=== PATIENT | female | born 1935 | race Caucasian/White ===

== ENCOUNTER 2021-01-27 18:50 | Inpatient (IN) | payer MEDICARE ==
[~2021-01-27] VITALS: Ht 160 cm; Wt 71.7 kg
--- NOTE | ~2021-01-27 | EMS ---
[facility] [address] [place] [address] EMS Patient Care Report Name: TAWANNA WORRELL Room #: REG M.R.#: [id number] Admission: 01/27/21 Attend Phys: Discharge: Date of : 34 Report #: [id number] THIS REPORT FOR: //name// Report Transmitted: 01/27/2021 20:30 EMS Care Summary [place], [place]/[facility] Incident [id number] @ 01/27/2021 18:28 Incident Location [address] [place] [address] Patient TAWANNA WORRELL Female, 85 Years 1935 Patient Address [address] [address] Patient History Cardiac Condition - Other,Cardiac - Stent, Chief Complaint ALTERED MENTAL STATUS Disposition Transported [place] Dispatch Reason Unconscious/Fainting Transported To [facility] Narrative UPON ARRIVAL PT SLUMPED BACK IN CHAIR AT KITCHEN TABLE BARELY CONSCIOUS AND NOT ALERT. PT HAD A CHANGE IN MENTAL STATUS AND HAS BEEN IN AND OUT OF CONSCIOUSNESS. PUMPER CREW HAS A NRB ON PT AND HAS BEEN UNABLE TO GET A B/P. UNABLE TO PALPATE RADIAL PULSE, DUE TO CLAMMY PALE SKIN WE ASSUME B/P IS LOW. PT ALSO BRADYCARDIC. PT LIFTED DOWN TO COOK RELIEF ON FLOOR AND CARRIED TO COT/ LOADED. IV STARTED, WHILE PADS ARE BEING PLACED PT GIVEN ATROPINE WITH NO EFFECT. REPORT CALLED TO ER AND PACING OF PT BEGINS. PT HAS SUGNIFICANT IMPROVEMENT OF SKIN VITALS AND IMPROVEMENT OF B/P AFTER PACING BEGAN. PT [facility] [address] [place] [address] EMS Patient Care Report Name: TAWANNA WORRELL Room #: REG [facility].R.#: [id number] Admission: 01/27/21 Attend Phys: Discharge: Date of : 34 Report #: [id number] TRANSPORTED TO [facility]. Initial Vitals @18:40P: 27,SpO2: 95, @18:46P: 24, @PTAP: 40,SpO2: 98, @18:47P: 73,R: 20,BP: 94/58,GCS: 9,CO: 1,SpO2: 97,Revised Trauma: 11, @18:39P: 34,R: 20,Pain: 0/10,GCS: 9,Glucose: 217,SpO2: 100, Assessments @18:36MENTAL:Unresponsive,SKIN:Diaphoresis,Pale,HEENT:Neck/Airway: No Abnormalities,LUNG SOUNDS:General: No Abnormalities,ABDOMEN:General: No Abnormalities,PELVIS//GI:EXTREMITIES:Left Arm: Weakness,Right Arm: Weakness,Left Arm: Abnormal Pulse,Right Arm: Abnormal Pulse,Right Leg: Weakness,Left Leg: Weakness,PULSE:Radial: Absent,Carotid: 1+ Thready,NEURO:No Abnormalities, Impression Cardiac arrhythmia/dysrhythmia Procedures @18:46Response: Improved@18:36ALS AssessmentResponse: UnchangedSucceeded@PTAOxygen FlowRate: 15 Device: Non Re-breather Mask (NRB) Response: UnchangedSucceeded@18:43Atropine - 0.5 Milligrams (mg) - Intravenous (IV)Response: Unchanged@18:41Normal Saline (.9% NaCl) 300cc (20 ga) Site: Hand-LeftResponse: UnchangedSucceeded@18:413-Lead ECGResponse: UnchangedSucceeded 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,Oxygen FlowRate: 15 Device: Non Re-breather Mask (NRB) Response: UnchangedSucceeded, 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,BP: / M,PULSE: 40,RR: R,SPO2: 98 Ox,ETCO2: ,BG: ,PAIN: ,GCS: , 18:24,Call Received 18:24,Dispatch Notified 18:28,Dispatched 18:28,En Route 18:34,On Scene 18:35,At Patient 18:36,ALS Assessment,Response: UnchangedSucceeded, 18:39,BP: / M,PULSE: 34,RR: 20 R,SPO2: 100 Ox,ETCO2: ,B,PAIN: 0,GCS: 9, 18:40,BP: / M,PULSE: 27,RR: R,SPO2: 95 Ox,ETCO2: ,BG: ,PAIN: ,GCS: , 18:41,Normal Saline (.9% NaCl) 300cc 20 ga Site: Hand-Left,Response: UnchangedSucceeded, 18:41,3-Lead ECG,Response: UnchangedSucceeded, 18:43,Atropine - 0.5 Milligrams (mg) - Intravenous (IV),Response: Unchanged 18:43,Depart Scene [address] [address] EMS Patient Care Report Name: TAWANNA WORRELL Room #: REG KRISTINE M.R.#: [id number] Admission: 01/27/21 Attend Phys: Discharge: Date of : 34 Report #: [id number] 18:46,Response: Improved 18:46,At Destination 18:46,BP: / M,PULSE: 24,RR: R,SPO2: Ox,ETCO2: ,BG: ,PAIN: ,GCS: , 18:47,BP: 94/58 M,PULSE: 73,RR: 20 R,SPO2: 97 Ox,ETCO2: ,BG: ,PAIN: ,GCS: 9, 18:56,Call Closed Disclaimer v1.1 Copyright 2020 [employer] This EMS Care Summary contains data elements from the applicable legal record (which may be displayed differently). It is designed to provide pertinent information for the following purposes: continuity of care, clinical quality, and state data reporting. The complete legal record is available to ED staff and administrators of the receiving hospital in [employer] Patient Tr[employer]. All data is provided "as is."
[2021-01-27 18:51] VITALS: BP 221/81
[2021-01-27 19:18] LABS: ABSOLUTE NEUTROPHILS 4.4 thou/uL (1.4-8.2); BASOPHILS 0.7 % (0.0-2.0); EOSINOPHILS 1.6 % (0.0-3.0); HEMATOCRIT 39.7 % (37.0-47.0); HEMOGLOBIN 12.8 gm/dL (12.0-15.0); LYMPHOCYTES 46.5 % (24.0-44.0); MCH 31.4 pg (26.0-34.0); MCHC 32.3 g/dL (28.0-37.0); MCV 96.9 fL (80.0-100.0); MONOCYTES 14.4 % (1.0-8.0); PLATELET COUNT 169 thou/uL (150-400); POLYS 36.8 % (36.0-66.0); RDW 15.1 % (10.5-14.5)
[2021-01-27 19:41] LABS: ALBUMIN 2.9 g/dL (3.4-5.0); ANION GAP 13 mmol/L (7-16); BUN 31 mg/dL (7-18); CHLORIDE 105 mmol/L (98-107); CO2 19 mmol/L (21-32); CREATININE 1.5 mg/dL (0.6-1.0); DIRECT BILIRUBIN 0.1 mg/dL (<0.1-0.2); GLUCOSE 220 mg/dL (74-106); POTASSIUM 4.8 mmol/L (3.5-5.1); SGOT 114 U/L (15-37); SGPT 133 U/L (14-59); SODIUM 137 mmol/L (136-145); TOTAL BILIRUBIN 0.5 mg/dL (0.2-1.0); TOTAL PROTEIN 6.7 g/dL (6.4-8.2); TROPONIN-I <0.06 ng/mL (<0.06)
[2021-01-27 19:42] LABS: CALCIUM 12.8 mg/dL (8.5-10.1)
[2021-01-27 19:45] LABS: URINE BILIRUBIN NEGATIVE (Negative); URINE BLOOD NEGATIVE (Negative); URINE CLARITY CLEAR; URINE COLOR YELLOW; URINE GLUCOSE-RANDOM* TRACE (Negative); URINE KETONES NEGATIVE (Negative); URINE NITRITE-REFLEX NEGATIVE (Negative); URINE PROTEIN (DIPSTICK) 1+ (Negative); URINE SPECIFIC GRAVITY 1.015 (1.005-1.035); URINE UROBILINOGEN 0.2 E.U./dl (0.2-1.0)
[2021-01-27 19:51] LABS: URINE LEUKOCYTES-REFLEX 2+ (Negative)
[2021-01-27 20:05] LABS: BACTERIA-REFLEX None Seen /HPF (None Seen); SQUAMOUS 0-3 Few /LPF (0-3); URINE RBC None Seen /HPF (NONE SEEN); URINE WBC-REFLEX 0-5 Rare /HPF (0-5)
[2021-01-27 20:06] LABS: CRYSTALS None Seen /LPF (None Seen)
[2021-01-27 22:57] LABS: CHOLESTEROL 139 mg/dL (<200); HDL CHOLESTEROL 69 mg/dL (>40); LDL CHOLESTEROL 44 mg/dL (<100); TRIGLYCERIDE 130 mg/dL (<150); VLDL 26 mg/dL (<40)
[2021-01-27 23:02] LABS: SERUM ASSESSMENT Clear
[2021-01-28] VITALS (7 sets, daily range): BP systolic 121–163; BP diastolic 46–72
[2021-01-28 05:16] LABS: CREATININE 1.2 mg/dL (0.6-1.0); POTASSIUM 4.5 mmol/L (3.5-5.1)
[2021-01-28 05:17] LABS: CALCIUM 8.6 mg/dL (8.5-10.1)
--- NOTE | 2021-01-28 07:22 | EKG ---
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: augusta : 1935 Requested By: Cherri Silva Order Number: [id number] MD: Avtar Magdaleno Measurements Intervals [place] Rate: 68 P: 104 DC: 368 QRS: -79 QRSD: 157 T: 90 QT: 466 QTc: 496 Interpretive Statements Second degree AV block, Mobitz II Right bundle branch block LVH with secondary repolarization abnormality No previous ECG available for comparison Electronically Signed On 01-28-2021 7:21:51 CDT by Avtar Magdaleno [email or web address] <ELECTRONICALLY SIGNED> By: Avtar Magdaleno MD, [facility] 01/28/21720 55 55 Avtar Magdaleno MD, FACC /EPI
--- NOTE | 2021-01-28 09:45 | 2DMMODE ---
[facility] [address] [email or web address] [address] 2 D/M-MODE ECHOCARDIOGRAM Name: TAWANNA WORRELL Room #: 170-9 ADM IN M.R.#: [id number] Admission: 01/27/21 Attend Phys: Velasquez Mathur MD Discharge: Date of : 34 Report #: [id number] THIS REPORT FOR: cc: Hussein Holley MD, Jonathan MD Park, Jin S. MD ~ APPROVED REPORT Study performed: 01/28/2021 08:20:42 EXAM: Comprehensive 2D, Doppler, and color-flow Echocardiogram Patient Location: ER Status: routine BSA: 1.75 HR: 54 bpm BP: 123/66 mmHg Rhythm: NSR Other Information Study Quality: Adequate Indications Heart block. Hx: CABG, AFIB 2D Dimensions RVDd: 36.47 mm IVSd: 10.52 (7-11mm) LVOT Diam: 19.97 (18-24mm) LVDd: 52.62 mm PWd: 10.01 (7-11mm) LVDs: 31.66 (25-40mm) Left Atrium: 38.22 (27-40mm) Aortic Root: 31.95 mm Volumes Left Atrial Volume (Systole) Single Plane 4CH: 103.66 mL Single Plane 2CH: 83.23 mL LA ESV Index: 56.00 mL/m2 Aortic Valve AoV Peak Carter.: 1.82 m/s AO Peak Gr.: 9.92 mmHg LVOT Max P.22 mmHg AO Mean Gr.: 7.61 mmHg [facility] [address] [place] [address] 2 D/M-MODE ECHOCARDIOGRAM Name: TAWANNA WORRELL TROY Room #: 170-9 ADM IN M.R.#: [id number] Admission: 01/27/21 Attend Phys: Velasquez Mathur MD Discharge: Date of : 34 Report #: [id number] AO V2 Mean: 1.32 m/s LVOT Max V: 0.90 m/s AO V2 VTI: 44.39 cm ALLISON Vmax: 1.54 cm2 Mitral Valve E/A Ratio: 0.8 MV Decel. Time: 199.21 ms MV E Max Carter.: 1.05 m/s MV A Carter.: 1.34 m/s MV PHT: 57.77 ms IVRT: 110.73 ms Pulmonary Valve PV Peak Carter.: 1.08 m/s PV Peak Gr.: 4.67 mmHg Pulmonary Vein P Vein S: 0.59 m/s P Vein A: 0.21 m/s P Vein D: 0.28 m/s P Vein A Dur.: 143.0 msec P Vein S/D Ratio: 2.11 Tricuspid Valve TR Peak Carter.: 3.25 m/s RAP Estimate: 5.00 mmHg TR Peak Gr.: 42.38 mmHg PA Pressure: 47.00 mmHg Left Ventricle The left ventricle is normal size. There is normal LV segmental wall motion. Mild basal septal hypertrophy is present. Left ventricular systolic function is normal. LVEF is 60-65%. Mild diastolic dysfunction is present (impaired relaxation pattern). Right Ventricle The right ventricle is normal size. The right ventricular systolic function is normal. Atria Left atrium is dilated. The right atrium size is normal. Aortic Valve Aortic valve leaflets are mildly thickened and calcified. No aortic regurgitation is present. There is no aortic valvular stenosis. Mitral Valve The mitral valve is normal in structure. Moderate mitral annular calcification. Moderate mitral regurgitation. No evidence of mitral [facility] [address] [place] [address] 2 D/M-MODE ECHOCARDIOGRAM Name: TAWANNA WORRELL Room #: 170-9 ADM IN .R.#: [id number] Admission: 01/27/21 Attend Phys: Velasquez Mathur MD Discharge: Date of : 34 Report #: [id number] valve stenosis. Tricuspid Valve The tricuspid valve is normal in structure. Mild tricuspid regurgitation. Estimated PAP is 45 mmHg. Pulmonic Valve The pulmonary valve is normal in structure. Mild to moderate pulmonic regurgitation. Great Vessels The aortic root is normal in size. Ascending aorta is not well visualized. IVC is normal in size and collapses >50% with inspiration. Pericardium There is no pericardial effusion. <Conclusion> The left ventricle is normal size. Left ventricular systolic function is normal. Mild diastolic dysfunction is present (impaired relaxation pattern). The right ventricle is normal size. Left atrium is dilated. Aortic valve leaflets are mildly thickened and calcified. Moderate mitral annular calcification. Moderate mitral regurgitation. Mild tricuspid regurgitation. <ELECTRONICALLY SIGNED> By: Akin Flores MD 01/28/2144 0944 Akin Flores MD /INF
--- NOTE | 2021-01-28 17:02 | NUR ---
PT RESTING COMFORTABLY. TRANSFER FROM ED TO ICU WITH MYSELF. PT AFEBRILE, ADEQUATE UOP, NO BM, APPROPRIATE APPETITE. PT DOES NOT WANT TO HAVE PACEMAKER PLACED UNTIL HER WINTERIZER SAYS SHE NEEDS IT, AND IF SHE DOES NEED IT SHE SAYS THAT SHE DOES NOT WANT TO HAVE IT DONE HERE. PT WITH AT BEDSIDE, THEY HAVE BOTH BEEN THOUROUGHLY UPDATED AND EDUCATED ON PT CONDITION AND POC. PT PROGRESSING TOWARDS POC.
[2021-01-29] VITALS (22 sets, daily range): BP systolic 108–205; BP diastolic 46–88
[2021-01-29 02:06] LABS: GLYCOHEMOGLOBIN (HGB A1C) 6.5 % (4.8-5.6)
--- NOTE | 2021-01-29 11:03 | NUR ---
Patient worked with OT and PT, she is weak, see clinicians noted. Patient expressed she is nauseated and did not want to eat. Took a sip of orange juice and expressed she can not eat any more. She does not want any medication for nausea. She wants to rest. While working with PT, after hydralazine, her blood pressure with being upright went from 205-120's systolic. Nurse re-evaluated her blood pressure prior to giving benicar as presribed and her sbp is 140. She denies chest pain or shortness of breath. Nurse also trialed her on room air. Her o2 sat on room air was 90-92%. 1 Liter nasal cannula placed at this time. Will continue to try to wean her off oxygen.
--- NOTE | 2021-01-29 16:55 | NUR ---
Visited pt at the bedside, CM role introduced. Patient has fallen 2 x in the past month at home, has 2 steps entering the house and 18 steps inside to the bed room. Shahzad [phone] and son Ash [phone] live with the patient at home. Patient recalls that she had used [facility] in the past and the is currently using them now, patient is open to use the same when needed. Patient is independent of all ADL's, would drive once in a while but not as often as she did in the past. Patient also mentioned she cares for the needs of her at home, helping with his ADL's. No DME but has grab bars in the bathroom. Patient is being treated for heart block, acute Encep, and UTI. Therapy evals in progress. Will check with [facility] to see if they can accept at dc if needed.
[2021-01-30] VITALS (10 sets, daily range): BP systolic 141–170; BP diastolic 46–70
--- NOTE | 2021-01-30 11:36 | NUR ---
Possible dc home later today. RN, PT and OT zenia recommended. Referral called and faxed to [facility] as the pt's spouse is currently on service with them. They can accept. Cm to fax final orders if dc'd today.
[2021-01-30] MEDS ORDERED: BENICAR40 MG PO (11:49)
[2021-01-30] MEDS ORDERED: HYDRALAZINE 2525 MG PO (11:49)
[2021-01-30] MEDS ORDERED: ASA81BEC PO (11:58)
--- NOTE | 2021-01-30 12:32 | NUR ---
PT NOT DISCHARGING TODAY DUE TO RELUCTANCY FROM CARDIOLOGY BASED ON WEAKNESS AND ORTHOSTATIC BP BY PT.
--- NOTE | 2021-01-30 13:24 | NUR ---
I TOOK OVER CARE OF THIS PT APPROX 1230. ASSESSMENT DOCUMENTED. PT NOW BEING GIVEN BACK TO ORIGIONAL NURSE. REPORT GIVEN TO SHWETA PANTOJA. PT SAFE AND ASYMPOMATIC.
[2021-01-31 03:55] VITALS: BP 173/58
[2021-01-31 05:29] VITALS: BP 140/42
[2021-01-31 08:49] VITALS: BP 137/61
[2021-01-31] MEDS ORDERED: NORVASC5 MG PO (09:14)
[2021-01-31] MEDS ORDERED: PACERONE 200 M200 M1 PO (09:48)
[2021-01-31] MEDS ORDERED: BENTYL 10 MG CA10 M1 PO (09:49)
[2021-01-31] MEDS ORDERED: SPIRONOLACTONE25 MG PO (09:50)
[2021-01-31] MEDS ORDERED: ELIQUIS5 MG PO (09:50)
[2021-01-31] MEDS ORDERED: OMEPRAZOLE40 MG PO (09:51)
[2021-01-31] MEDS ORDERED: ATORVASTATIN CA20 MG PO (09:52)
[2021-01-31] MEDS ORDERED: CARVEDILOL25 MG PO (09:52)
[2021-01-31] MEDS ORDERED: COZAAR 25 MG TA25 M1 PO (09:55)
[2021-01-31 11:20] VITALS: BP 128/50
--- NOTE | 2021-01-31 11:20 | NUR ---
phys reports patient would benefit from acute rehab. patient reports to phys she has been at [facility] rehab in past. Patient is not in network with [facility]. Discussed with patient she is agreeable to referral to [facility] acute rehab. Sp with Leonor miles liason with [facility]. She reports patient has not been inpatient with their rehab. She reviewed referral packet. She reports she reviewed and would not be able to obtain auth with insurance. Therapy zenia reports home with care. Sp with patient and sister at bedside. Patient agreeable to home with HH. She reports her son is in home and able to assist. her spouse is currently on service with [facility] care. Discussed referral to [facility] care. patient/sister agreeable to plan to dc home with care. Updated phys.
[2021-01-31 11:41] VITALS: BP 142/57
--- NOTE | 2021-01-31 16:48 | NUR ---
PATIENT DISCHARGED TO HOME WITH SON, TRANSPORTED BY WHEELCHAIR TO PRIVATE VEHICLE VIA STAFF. NO QUESTIONS OR CONCERNS FROM STAFF AT TIME OF DISCHARGE.
--- NOTE | 2021-02-05 12:43 | HC ---
[facility] [place] [address] CONSULTATION Name: TAWANNA WORRELL Room #: 201-P [facility] IN M.R.#: [id number] Admission: 01/27/21 Attend Phys: Celi Alejandro MD Discharge: 01/31/21 Date of : 34 Report #: [id number] THIS REPORT FOR: cc: Hussein Holley MD, Jonathan MD Smithson,Sky Barclay MD ~ DOC #: [id number] Sky Tyson MD DATE OF SERVICE: 01/31/2021 HISTORY OF PRESENT ILLNESS: The patient is an 85-year-old white female with history of valvular insufficiency, hypertension, frequent falls, who had mental status changes and passed out. She apparently laid her head down on her kitchen table and found herself in the Emergency Room. She was found unresponsive by EMS. Heart rate in the 30s. CT head was negative. She was noted to have second-degree heart block. She also was diagnosed with acute metabolic encephalopathy. She was diagnosed with a concurrent urinary tract infection and had acute renal insufficiency, thought to likely be consistent with acute tubular necrosis. Her blood glucoses were also high. She has a history of frequent lightheaded episodes with frequent falls. Cardiology is involved with medication adjustments and she is doing better off her Coreg and amiodarone. We are seeing her in rehabilitation medicine consultation. She has some issues with orthostasis and weakness, but is feeling better today. PAST MEDICAL HISTORY: As noted above. She has a history of valvular insufficiency, frequent falls, history of hypertension, borderline diabetes mellitus, atrial fibrillation, cardiomyopathy. MEDICATIONS: Please see the full medication listing. ALLERGIES: No known drug allergies. SOCIAL HISTORY: She lives in a house, 2 steps in, multilevel house with aiding inside. She did not utilize gait aids. She did help her some. She was driving short distances. HABITS: No history of ETOH or tobacco abuse. REVIEW OF SYSTEMS: Feeling better. No current chest pain, shortness of breath or abdominal discomfort. PHYSICAL EXAMINATION: GENERAL: The patient is a pleasant, slender 85-year-old white female in no obvious distress. She is alert, pleasant, oriented, follows basic 1-step commands. Facies appeared symmetric. VITAL SIGNS: Temperature 37.1, pulse 87, respirations 18, blood pressure [facility] [address] [place] [address] CONSULTATION Name: TAWANNA WORRELL Room #: 201-P [facility] IN M.R.#: [id number] Admission: 01/27/21 Attend Phys: Celi Alejandro MD Discharge: 01/31/21 Date of : 34 Report #: [id number] 137/61. EXTREMITIES: She has functional range of motion of both upper extremities; strength is grade 4- to 4/5. DTRs are trace to 1. Lower extremities functional range of motion, strength is grade 4 to 4-/5, DTRs are trace to 1. Tone appeared to be intact. She was seen in physical therapy yesterday and was sit to stand, standby assistance with gait, standby assistance 30 feet without a device. OT noted she is standby assistance with toileting. ASSESSMENT: An 85-year-old white female with the following problem list: 1. Secondary heart block. Initial heart rate 30-40s, off Coreg and amiodarone and now doing better. 2. History of frequent lightheaded episodes with frequent falls. 3. Acute metabolic encephalopathy, appears improved/resolved. 4. Acute urinary tract infection, has been given IV Rocephin. 5. Acute renal insufficiency, likely acute tubular necrosis, improved. 6. Elevated blood glucose, borderline diabetes mellitus. 7. History of valvular insufficiency. 8. Hypertension. PLAN: The patient is feeling better and is hoping to return directly home. Therapies are to work with her and we will see how she does. She is out of network as far as insurance for acute inpatient rehabilitation here at [facility], but she would desire to go to [facility] acute rehab as a backup plan if needed. Her first preference; however, would be to try to see if she could go directly home. Thank you for asking us to assist in this patient's care. MD SONJA Hope/ROBBY <ELECTRONICALLY SIGNED> By: Sky Tyson MD 02/05/21 1243 [id number] [id number] Sky Tyson MD /nt
== END 2021-01-31 16:47 | disposition home health service (06) | DRG 308 ==
LOC: ER 18:50 → EROBS 21:11 → ICU 21:11 → 2N 21:11 → ICU 01-28 15:39 → 2N 01-30 07:18 → ICU 01-30 07:18 → 2N 01-31 09:39
PROVIDERS: Emergency Medicine; Nurse Practitioner Family; ADMIT Hospitalist; ATTEND Hospitalist
DX: I44.1 Atrioventricular block, second degree (principal); G93.41 Metabolic encephalopathy; N39.0 Urinary tract infection, site not specified; E87.2 Acidosis; N17.9 Acute kidney failure, unspecified; I48.91 Unspecified atrial fibrillation; I10 Essential (primary) hypertension; I42.9 Cardiomyopathy, unspecified; R73.03 Prediabetes; E78.5 Hyperlipidemia, unspecified; I48.0 Paroxysmal atrial fibrillation; I25.10 Atherosclerotic heart disease of native coronary artery without angina pectoris; R73.9 Hyperglycemia, unspecified; I08.1 Rheumatic disorders of both mitral and tricuspid valves; Z20.822 Contact with and (suspected) exposure to COVID-19; Z95.1 Presence of aortocoronary bypass graft
CPT/HCPCS: 10078; 10081; 10203